=== PATIENT | female | born 1960 | race Asian ===

== ENCOUNTER → 2022-06-14 10:04 | Outpatient (CLI) | payer OTHER, SELFPAY ==
--- NOTE | 2022-06-14 | DI.MG.S_ITS ---
BILATERAL DIGITAL DIAGNOSTIC MAMMOGRAM 3D/2D: 06/14/2022 CLINICAL: Right breast mass. Comparison is made to exams dated: 09/12/2018 mammogram, 08/28/2019 mammogram, 07/27/2020 mammogram, and 07/28/2021 mammogram - outside facility. The tissue of both breasts is heterogeneously dense. This may lower the sensitivity of mammography. There is a biopsy site marker on the left breast. There is a 1.3 cm oval low density mass with a circumscribed margin in the right breast at 9 o'clock posterior depth 9 cm from the nipple. This correlates as palpated. IMPRESSION: INCOMPLETE: NEEDS ADDITIONAL IMAGING EVALUATION The 1.3 cm oval low density mass in the right breast is indeterminate. An ultrasound is recommended. Based on Tyrer-Cuzick model (a risk assessment model), the patient's lifetime risk is 31.4% and her 10 year risk is 13.7%. If a patient has an elevated risk, a more comprehensive evaluation should be considered and/or a referral to a genetic counselor. The [place] [employer], [employer], and NCCN Guidelines advise the consideration of Breast MRI as an adjunct to screening mammography in patients whose Lifetime risk to develop breast cancer is 20% or higher. This exam was interpreted at Station ID: [id number]. NOTE: For mammograms, a report in lay terms will be sent to the patient. Approximately 15% of breast malignancies will not be visualized mammographically. In the management of a palpable breast mass, a negative mammogram must not discourage biopsy of a clinically suspicious lesion. Electronically Signed By: Jose Daniel Phillips M.D. lc/:06/19/2022 10:58:00 ACR BI-RADS Category 0: Incomplete [id number]
--- NOTE | 2022-06-14 | DI.US.S_ITS ---
ULTRASOUND OF RIGHT BREAST: 06/14/2022 CLINICAL: Palpable right breast lump. Comparison is made to exams dated: 06/14/2022 mammogram - [facility], 07/28/2021 ultrasound, 07/28/2021 mammogram, 07/27/2020 mammogram, 07/27/2020 ultrasound, and 08/28/2019 ultrasound - outside facility. Real-time and Doppler ultrasound of the right breast were performed. Valdivia scale images of the real-time examination were reviewed. There is a benign 1.4 cm x 1.3 cm x 0.9 cm cyst in the right breast at 10 o'clock posterior depth 9 cm from the nipple. This correlates as palpated and with mammography findings. IMPRESSION: BENIGN There is no sonographic evidence of malignancy. The 1.4 cm x 1.3 cm x 0.9 cm cyst in the right breast is benign. A 1 year screening mammogram is recommended. This exam was interpreted at Station ID: [id number]. Electronically Signed By: Jose Daniel Phillips M.D. /:06/14/2022 11:33:39 letter sent: Clinical Evaluation Ultrasound BI-RADS: 2 Benign
== END ==
PROVIDERS: PCP Family Medicine; Referring Provider Family Medicine; Visit Provider Family Medicine
DX: N60.01 Solitary cyst of right breast (principal); R92.8 Other abnormal and inconclusive findings on diagnostic imaging of breast
CPT/HCPCS: 76642; 77066; G0279

== ENCOUNTER → 2022-11-22 10:50 | Outpatient (CLI) | payer OTHER, SELFPAY ==
--- NOTE | 2022-11-22 | DI.RAD.S_ITS ---
PROCEDURE: XR DEXA AXIAL SKELETON INDICATIONS: Age-related osteoporosis COMPARISON: None. FINDINGS: This blank DEXA report has been sent in error by the PACS system. The correct and complete report will be forthcoming in 1-2 days. Thank you for your patience and understanding. Dictated by: Gerald Izaguirre M.D. on 11/22/2022 at 14:31 Approved by: Gerald Izaguirre M.D. on 11/22/2022 at 14:31
== END ==
PROVIDERS: PCP Family Medicine; Referring Provider Family Medicine; Visit Provider Family Medicine
DX: Z13.820 Encounter for screening for osteoporosis (principal); Z78.0 Asymptomatic menopausal state; M85.852 Other specified disorders of bone density and structure, left thigh
CPT/HCPCS: 77080

== ENCOUNTER → 2023-06-17 10:20 | Outpatient (CLI) | payer OTHER, SELFPAY ==
--- NOTE | 2023-06-17 | DI.MG.S_ITS ---
BILATERAL DIGITAL DIAGNOSTIC MAMMOGRAM 3D/2D: 06/17/2023 CLINICAL: Fibrocystic breast. Right breast mass.Family History of Breast cancer. Comparison is made to exams dated: 06/14/2022 mammogram - [facility], 07/28/2021 mammogram, 07/27/2020 mammogram, and 08/28/2019 mammogram - outside facility. Both breasts are heterogeneously dense, which may obscure small masses (category c / 51-75% glandular tissue). No significant masses, calcifications, or other findings are seen in either breast. IMPRESSION: INCOMPLETE: NEEDS ADDITIONAL IMAGING EVALUATION There is no mammographic abnormality seen in the right breast to correspond with the palpable abnormality, however, ultrasound is recommended. There is no mammographic abnormality seen in either breast to correspond with the diffuse lateral breast pain, however, ultrasound is recommended. Based on Tyrer-Cuzick model (a risk assessment model), the patient's lifetime risk is 30.8% and her 10 year risk is 13.9%. If a patient has an elevated risk, a more comprehensive evaluation should be considered and/or a referral to a genetic counselor. The [place] [employer], [employer], and NCCN Guidelines advise the consideration of Breast MRI as an adjunct to screening mammography in patients whose Lifetime risk to develop breast cancer is 20% or higher. This exam was interpreted at Station ID: [id number]. NOTE: For mammograms, a report in lay terms will be sent to the patient. Approximately 15% of breast malignancies will not be visualized mammographically. In the management of a palpable breast mass, a negative mammogram must not discourage biopsy of a clinically suspicious lesion. Electronically Signed By: Carri nunes/:06/17/2023 11:30:08 ACR BI-RADS Category 0: Incomplete 3340F
--- NOTE | 2023-06-17 10:22 | DI.US.S_ITS ---
ULTRASOUND OF RIGHT BREAST: 06/17/2023 CLINICAL: Palpable right breast lump and focal tenderness. Comparison is made to exams dated: 06/17/2023 mammogram, 06/14/2022 ultrasound, 06/14/2022 mammogram - [facility], 07/28/2021 ultrasound, 07/28/2021 mammogram, and 07/27/2020 mammogram - outside facility. Color flow and real-time ultrasound of the right breast were performed on the areas of interest. Valdivia scale images of the real-time examination were reviewed. There is an oval cyst in the right breast at 9 o'clock middle depth. This oval cyst is hypoechoic with a well-defined boundary, internal echoes, and posterior acoustic enhancement. This abnormality is decreased in size and represnts a previously identified simple cyst. Color flow imaging demonstrates that there is no vascularity present. IMPRESSION: BENIGN There is no sonographic evidence of malignancy. The oval cyst in the right breast represents an involuting simple cyst with trace internal debris and is benign. There is no mammographic or sonographic abnormality seen in the right breast to correspond with the pain in the upper outer quadrant, however, clinical followup is recommended. A 1 year screening mammogram is recommended. This exam was interpreted at Station ID: [id number]. Electronically Signed By: Carri nunes/:06/18/2023 15:45:15 Entry: - 06/18/2023 15:55:16 Ultrasound BI-RADS: 2 Benign
--- NOTE | 2023-06-17 10:22 | DI.US.S_ITS ---
LIMITED ULTRASOUND OF LEFT BREAST AND AXILLA: 06/17/2023 CLINICAL: Focal left breast pain. Comparison is made to exams dated: 06/17/2023 mammogram, 06/14/2022 mammogram - [facility], 07/28/2021 ultrasound, 07/28/2021 mammogram, 07/27/2020 mammogram, and 07/27/2020 ultrasound - outside facility. Color flow ultrasound of the left breast axilla was performed on the areas of interest. Valdivia scale images of the real-time examination were reviewed. IMPRESSION: NEGATIVE There is no sonographic evidence of malignancy. There is no mammographic or sonographic abnormality seen in the left breast to correspond with the pain, however, clinical followup is recommended. A 1 year screening mammogram is recommended. This exam was interpreted at Station ID: Unknown. Electronically Signed By: Carri nunes/fariba:06/18/2023 15:43:52 Entry: - 06/18/2023 15:43:52 letter sent: Clinical Evaluation Ultrasound BI-RADS: 1 Negative
== END ==
PROVIDERS: PCP Family Medicine; Referring Provider Family Medicine; Visit Provider Family Medicine
DX: R92.2 Inconclusive mammogram (principal); N60.01 Solitary cyst of right breast; N63.10 Unspecified lump in the right breast, unspecified quadrant; N60.19 Diffuse cystic mastopathy of unspecified breast; N64.4 Mastodynia; Z80.3 Family history of malignant neoplasm of breast
CPT/HCPCS: 76642; 77066; G0279

== ENCOUNTER → 2024-02-12 11:20 | Outpatient (CLI) | payer OTHER, SELFPAY ==
--- NOTE | 2024-02-12 11:21 | DI.RAD.S_ITS ---
PROCEDURE: XR DEXA AXIAL SKELETON INDICATIONS: Age-related osteoporosis COMPARISON: [facility], CR, XR DEXA AXIAL SKELETON, 11/22/2022, 11:08. FINDINGS: Lumbar Spine: Bone mineral density 0.911 g/cm2, T score -1.2, no significant interval change. Left Hip: Bone mineral density 0.837 g/cm2, T score -0.6, no significant wall change. Left Femoral Neck: Bone mineral density 0.624 g/cm2, T score -1.6, no significant interval change. Right Hip: Bone mineral density 0.873 g/cm2, T score -0.6, there is significant interval increase in bone mineral density. Right Femoral Neck: Bone mineral density 0.673 g/cm2, T score -1.6, there is significant interval increase in bone mineral density. Fracture Risk Calculation (when applicable): 10-year fracture risk of a major osteoporotic fracture 4.8% and of a hip fracture 0.7%. (T score greater or equal to -1.0 to: NORMAL) (T score from -1.1 to -2.4: OSTEOPENIA) (T score less than or equal to -2.5: OSTEOPOROSIS) IMPRESSION: Osteopenia. There is significant interval increase in bone mineral density at the right hip. Dictated by: Sukhi Faust M.D. on 02/13/2024 at 11:17 Approved by: Sukhi Faust M.D. on 02/13/2024 at 11:22
== END ==
LOC: RAD 11:20
PROVIDERS: PCP Family Medicine; Referring Provider Family Medicine; Visit Provider Family Medicine
DX: M81.0 Age-related osteoporosis without current pathological fracture (principal)
CPT/HCPCS: 77080

== ENCOUNTER → 2024-04-13 09:30 | Outpatient (CLI) | payer OTHER, SELFPAY ==
--- NOTE | 2024-04-13 09:32 | DI.MG.S_ITS ---
BILATERAL DIGITAL DIAGNOSTIC MAMMOGRAM 3D/2D: 04/13/2024 CLINICAL: Left breast lump. Comparison is made to exams dated: 06/17/2023 mammogram, 06/14/2022 mammogram - [facility], and 07/28/2021 mammogram - outside facility. Both breasts are heterogeneously dense, which may obscure small masses (category c / 51-75% glandular tissue). A BB marker was placed in the area of clinical concern in the left breast, and no mammographic abnormality is identified. No significant masses, calcifications, or other findings are seen in either breast. IMPRESSION: INCOMPLETE: NEEDS ADDITIONAL IMAGING EVALUATION No mammographic evidence of malignancy. Recommend further evaluation with targeted breast ultrasound, which will immediately follow this exam. Based on Tyrer-Cuzick model (a risk assessment model), the patient's lifetime risk is 30.8% and her 10 year risk is 13.9%. If a patient has an elevated risk, a more comprehensive evaluation should be considered and/or a referral to a genetic counselor. The [employer] [employer], [employer], and NCCN Guidelines advise the consideration of Breast MRI as an adjunct to screening mammography in patients whose Lifetime risk to develop breast cancer is 20% or higher. This exam was interpreted at Station ID: [id number]. NOTE: For mammograms, a report in lay terms will be sent to the patient. Approximately 15% of breast malignancies will not be visualized mammographically. In the management of a palpable breast mass, a negative mammogram must not discourage biopsy of a clinically suspicious lesion. Electronically Signed By: Nida Soto M.D., Ph.D. eb/:04/13/2024 10:27:45 ACR BI-RADS Category 0: Incomplete 3340F
--- NOTE | 2024-04-13 09:33 | DI.US.S_ITS ---
LIMITED ULTRASOUND OF LEFT BREAST: 04/13/2024 CLINICAL: Palpable left breast lump. Comparison is made to exams dated: 04/13/2024 mammogram, 06/17/2023 ultrasound, 06/17/2023 mammogram, 06/14/2022 mammogram - [facility], 07/28/2021 ultrasound, and 07/28/2021 mammogram - outside facility. Color flow and real-time ultrasound of the left breast 2 o'clock region were performed. Valdivia scale images of the real-time examination were reviewed. There is a 0.3 cm x 0.3 cm x 0.3 cm oval mass with a circumscribed margin in the left breast at 2 o'clock, 6 cm from the nipple. This oval mass is hypoechoic with posterior acoustic enhancement. This correlates as palpated. This finding is not definitely seen on mammogram. Color flow imaging demonstrates that there is no vascularity present. IMPRESSION: PROBABLY BENIGN Left breast 0.3 cm oval circumscribed mass at 2 o'clock position corresponding to area of clinical palpable concern. Finding is likely a complicated cyst and is probably benign. Recommend follow-up ultrasound in 6 months to demonstrate stability. Patient was instructed to return sooner if development of any significant growth or clinically suspicious findings in the interim. Findings and recommendations were conveyed to the patient during today's evaluation. This exam was interpreted at Station ID: [id number]. Electronically Signed By: Nida Soto M.D., Ph.D. eb/:04/13/2024 11:10:33 letter sent: Followup Recommended Ultrasound BI-RADS: 3 Probably benign
== END ==
PROVIDERS: PCP Family Medicine; Referring Provider Family Medicine; Visit Provider Family Medicine
DX: R92.2 Inconclusive mammogram (principal); N63.21 Unspecified lump in the left breast, upper outer quadrant; R92.333 Mammographic heterogeneous density, bilateral breasts
CPT/HCPCS: 76642; 77066; G0279

== ENCOUNTER → 2024-05-14 10:48 | Outpatient (CLI) | payer OTHER, SELFPAY ==
--- NOTE | 2024-05-14 | DI.MRI.S_ITS ---
BREAST MRI OF BOTH BREASTS: 05/14/2024 CLINICAL: Heterogeneous Bilateral Breast. Family history. Comparison is made to exams dated: 04/13/2024 ultrasound, 04/13/2024 mammogram, 06/17/2023 ultrasound, 06/17/2023 mammogram, and 06/17/2023 ultrasound - [facility]. PROCEDURE: MR BREAST BI WO/W CON INDICATIONS: Mammographic heterogeneous density, bilateral breasts TECHNIQUE: The patient was placed prone in a dedicated breast imaging coil. Precontrast axial STIR and 3D FLASH without fat saturation sequences were obtained. Both before and after bolus injection of contrast, sequential 1-minute axial 3D FLASH with fat saturation sequences for 3 time points, with subtraction images and maximum intensity projections (MIP's) generated. Delayed sagittal FLASH images with fat saturation were also obtained. Computer-aided detection, including computer algorithm analysis of MRI image data for lesion detection and characterization, pharmacokinetic analysis, with further physician review for interpretation, was performed. FINDINGS: Image quality: Diagnostic. There is moderate background parenchymal enhancement. The breasts are heterogeneously dense. Right breast: At the 12 o'clock position of the right breast anterior depth, there is a focal region of non mass enhancement measuring 6 x 7 millimeters (, ). This may represent a prominent region of background fibroglandular enhancement, and does not appear masslike on sagittal images. No washout kinetics noted. No other suspicious mass, non-mass enhancement, or focus. Left breast: No suspicious mass, non-mass enhancement, or focus. Biopsy clip is present. Miscellaneous: There is borderline cardiomegaly. No suspicious findings in the partially visualized anterior mediastinum or upper abdomen. In the right axilla, there is 1.4 x 1.6 centimeter T2 hyperintense lesion (). No washout kinetics. IMPRESSION: INCOMPLETE: NEEDS ADDITIONAL IMAGING EVALUATION Right axilla 1.6 x 1.4 centimeter T2 hyperintense lesion, indeterminate, possibly a complicated cyst. (). Please note 9 o'clock position cyst was noted on May 2023 ultrasound 7 centimeters from the nipple, that was classified as benign. This lesion on MRI however is larger and may not be the same position. Ultrasound is recommended. Right breast 12 o'clock position focal non-mass enhancement measuring 6 x 7 millimeters (, ). This is probably benign, likely focal fibroglandular enhancement. Six-month follow-up MRI recommended. No suspicious findings in the left breast. BIRADS 0 COMMENT: The imaging literature indicates that a negative contrast breast MRI examination has a high sensitivity and a moderate specificity for detecting and excluding invasive carcinomas to a detection threshold of 3-5 mm; nonetheless, appropriate clinical and mammographic follow-up are recommended. MRI is not sensitive for detecting DCIS (ductal carcinoma in situ) and may not detect large invasive neoplasms that show only minimal enhancement such as mucinous carcinoma. If there are suspicious calcifications or clinically worrisome palpable masses, then biopsy should still be considered. Invasive neoplasms can be hidden by co-existent and benign enhancement caused by mastitis, hormone therapy effects, radiation therapy, , and recent biopsy or surgery. False positive examinations can occur in a number of circumstances, including breasts that have recently been subject to invasive procedures and those that contain atypical ductal hyperplasia, hormonally stimulated glandular tissue, fat necrosis, or radial scars. This exam was interpreted at Station ID: [id number]. Electronically Signed By: Jose Daniel Phillips M.D. lc/:05/14/2024 13:21:50 letter sent: Additional Imaging Needed ACR BI-RADS Category 0: Incomplete 3340F
== END ==
PROVIDERS: PCP Family Medicine; Referring Provider Family Medicine; Visit Provider Family Medicine
DX: R92.8 Other abnormal and inconclusive findings on diagnostic imaging of breast (principal); N63.31 Unspecified lump in axillary tail of the right breast; N63.15 Unspecified lump in the right breast, overlapping quadrants; N60.01 Solitary cyst of right breast; R92.333 Mammographic heterogeneous density, bilateral breasts; Z80.3 Family history of malignant neoplasm of breast
CPT/HCPCS: 77049; A9579

== ENCOUNTER → 2024-07-07 10:49 | Outpatient (CLI) | payer OTHER, SELFPAY ==
--- NOTE | 2024-07-07 10:50 | DI.US.S_ITS ---
LIMITED ULTRASOUND OF RIGHT BREAST AND AXILLA: 07/07/2024 CLINICAL: Late 6 month follow-up of cyst, and follow-up of abnormal MRI. Comparison is made to exams dated: 05/14/2024 breast MRI, 06/17/2023 ultrasound, 04/13/2024 mammogram, and 06/17/2023 mammogram - [facility]. Color flow and real-time ultrasound of the right breast 9 o'clock, 12 o'clock, and axilla regions were performed. Valdivia scale images of the real-time examination were reviewed. There is a stable 0.7 cm round cyst with debris in the right breast at 9 o'clock posterior depth. This round cyst with debris is hypoechoic with posterior acoustic enhancement. This correlates with breast MRI findings. Color flow imaging demonstrates that there is no vascularity present. There also is a benign normal lymph node in the right axillary tail. This normal lymph node displays fatty hilum. This correlates with breast MRI findings. Color flow imaging demonstrates that there is no vascularity present. No sonographic finding to correspond to the 12:00 MRI focus of enhancement. IMPRESSION: PROBABLY BENIGN The 0.7 cm round cyst with debris in the right breast at 9 o'clock posterior depth is stable and benign. The normal lymph node in the right axillary tail is benign. There is no abnormality seen in the right breast to correspond with the breast MRI finding at 12 o'clock in the anterior depth. A follow-up breast MRI in 4 months is recommended. Future imaging is recommended as follows: 11/14/2024 breast MRI. A left breast US will be recommended at that time to follow a previously described left breast finding which was not seen on MRI. Findings and recommendations were conveyed to the patient at time of exam. . This exam was interpreted at Station ID: [id number]. Electronically Signed By: Agnes valdes/:07/07/2024 17:38:14 letter sent: Followup Recommended ACR BI-RADS Category 3: Probably Benign [id number]
== END ==
PROVIDERS: PCP Family Medicine; Referring Provider Family Medicine; Visit Provider Family Medicine
DX: N63.11 Unspecified lump in the right breast, upper outer quadrant (principal); N60.01 Solitary cyst of right breast
CPT/HCPCS: 76642

== ENCOUNTER → 2024-11-19 10:16 | Outpatient (CLI) | payer BC, SELFPAY ==
--- NOTE | 2024-11-19 10:19 | DI.US.S_ITS ---
LIMITED ULTRASOUND OF LEFT BREAST: 11/19/2024 CLINICAL: 6 month follow-up of cyst left breast. Comparison is made to exams dated: 05/14/2024 breast MRI, 04/13/2024 ultrasound, and 04/13/2024 mammogram - [facility]. Real-time ultrasound of the left breast 2 o'clock region was performed. The previously described 0.3 cm x 0.3 cm x 0.3 cm oval mass with a circumscribed margin in the left breast at 2 o'clock middle depth 6 cm from the nipple is no longer seen and is compatible with a benign process. It was not seen on the prior MRI. No other significant abnormalities were seen sonographically in the left breast. IMPRESSION: BENIGN There is no sonographic evidence of malignancy. Return to annual mammogram screening schedule is recommended. Patient is also due for follow up breast MRI later this month. Findings and recommendations were conveyed to the patient during today's evaluation. This exam was interpreted at Station ID: [id number]. Electronically Signed By: Jamal Carpio M.D. at/:11/19/2024 13:35:01 letter sent: Clinical Evaluation ACR BI-RADS Category 2: Benign
[2024-11-19 12:12] LABS: Add Manual Diff / Slide Review NO; Basophils Absolute Auto 100 /uL (0-100); Basophils Percent Auto 0.8 % (0-2); Eosinophils Absolute Auto 100 /uL (0-450); Eosinophils Percent Auto 0.9 % (2-4); Hemoglobin 14.5 g/dL (12.0-16.0); Lymphocytes Absolute Auto 2100 /uL (1100-4500); Lymphocytes Percent Auto 27.7 % (25-40); Mean Corpuscular HGB Conc 33.6 % (30-36); Mean Corpuscular Hemoglobin 31.5 PG (26-34); Mean Corpuscular Volume 93.6 fL (80-100); Monocytes Absolute Auto 400 /uL (0-900); Neutrophils Absolute Auto 5000 /uL (1500-7000); Neutrophils Percent Auto 65.6 % (50-75); Platelet Count 346 X10^3/uL (150-400); Red Blood Cell Count 4.59 X10^6/uL (4.0-5.2); Red Cell Distribution Width 13.2 % (11.6-14.8); White Blood Cell Count 7.6 X10^3/uL (4.5-11.0)
[2024-11-19 12:47] LABS: Iron 177 ug/dL (37-170)
[2024-11-19 13:21] LABS: Thyroid Stimulating Hormone 1.06 uIU/mL (0.47-4.68)
[2024-11-19 13:22] LABS: Ferritin 60 ng/mL (11-264)
== END ==
PROVIDERS: PCP Family Medicine; Referring Provider Family Medicine; Visit Provider Family Medicine
DX: R92.8 Other abnormal and inconclusive findings on diagnostic imaging of breast (principal); L65.9 Nonscarring hair loss, unspecified
CPT/HCPCS: 36415; 76642; 82728; 83540; 84443; 85025

== ENCOUNTER → 2025-03-01 11:21 | Outpatient (CLI) | payer BC, SELFPAY ==
--- NOTE | 2025-03-01 11:23 | DI.RAD.S_ITS ---
PROCEDURE: XR DEXA AXIAL SKELETON INDICATIONS: screening for osteoporosis COMPARISON: None. FINDINGS: Lumbar Spine: Bone mineral density is 0.925 g/cm2, T score -1.1. Prior DEXA was performed using dissimilar scan type or analysis method. Left Femoral Neck: Bone mineral density 0.607 g/cm2, T score -2.2. Left Hip: Bone mineral density 0.805 g/cm2, T score -1.1. Prior DEXA was performed using dissimilar scan type or analysis method. Fracture Risk Calculation (when applicable): 10-year fracture risk of a major osteoporotic fracture 5.1% and of a hip fracture 0.8%. (T score greater or equal to -1.0 to: NORMAL) (T score from -1.1 to -2.4: OSTEOPENIA) (T score less than or equal to -2.5: OSTEOPOROSIS) IMPRESSION: By WHO criteria, patient has osteopenia. Follow-up guidelines as follows: Osteoporosis: Consider a repeat DEXA and Vertebral Fracture Assessment (VFA) exam in 2 years or sooner if medically necessary, to reassess this patient's status. Osteopenia: Consider a repeat DEXA in 2-3 years to reassess this patient's status, or if there is a new clinical indication. Normal: Consider a repeat DEXA in 5 years or sooner, or if there is a new clinical indication. All treatment decisions require clinical judgment and consideration of individual patient factors, including patient preferences, comorbidities, previous drug use, risk factors not captured in the FRAX model (e.g., frailty, falls, vitamin D deficiency, increased bone turnover, interval significant decline in bone density ) and possible under- or over-estimation of fracture risk by FRAX. In addition, the NOF Guide recommends that FDA-approved medical therapies be considered in postmenopausal women and men age >= 50 years with a: * Hip or vertebral (clinical or morphometric) fracture * T-score of <=-2.5 at the spine or hip * Ten-year fracture probability by FRAX of >= 3% for hip fracture or >=20% for major osteoporotic fracture. Approved by: Arsalan Jimenez M.D. on 03/01/2025 at 22:50
== END ==
LOC: RAD 11:22
PROVIDERS: PCP Family Medicine; Referring Provider Family Medicine; Visit Provider Family Medicine
DX: M81.0 Age-related osteoporosis without current pathological fracture (principal)
CPT/HCPCS: 77080

== ENCOUNTER → 2025-05-12 13:19 | Outpatient (CLI) | payer BC, SELFPAY ==
--- NOTE | 2025-05-12 13:21 | DI.MG.S_ITS ---
US breast BI limited, MM diagnostic mammo BI: 05/12/2025 BI-RADS: 4 CLINICAL: 65-year old female for bilateral diagnostic mammogram and bilateral diagnostic breast ultrasound. Tyrer-Cuzick lifetime risk of 25.2%. Current reported family history of breast cancer: mother and maternal aunt. The patient reports a palpable abnormality (1 month) in the left breast. The patient had a prior left breast biopsy. PRIOR EXAMS 11/19/2024, 07/07/2024, 05/14/2024, 04/13/2024, 06/17/2023, 06/14/2022. MAMMOGRAPHY TECHNIQUE: 2D and 3D (tomosynthesis) digital mammographic views obtained, with additional images as needed for full coverage. Current study was also evaluated with a Computer Aided Detection (CAD) system. ULTRASOUND TECHNIQUE: Real-time yi scale and color doppler imaging of the area of clinical interest was performed with image documentation. TARGETED Bilateral Breast Ultrasound: Real-time ultrasound exam was performed focused to area of clinical and/or imaging concern. DENSITY D. The breasts are extremely dense, which lowers the sensitivity of mammography. MAMMOGRAPHY FINDINGS Right: No suspicious mass, asymmetry, microcalcification, or other abnormality seen. No significant change from comparison. Left (finding-1): Upper Outer Quadrant, Middle depth: A skin marker was placed in the area of concern, and no mammographic abnormalities are identified or to account for concern by the patient of a palpable lump. No suspicious mass, asymmetry, microcalcification, or other abnormality seen. Left: Biopsy marker present on the left. ULTRASOUND FINDINGS Right: Axilla, measuring 3 x 1.5 x 2.1 cm: There is a heterogeneous lymph node with eccentric cortical thickening measuring up to 6 mm. Right: Outer at 9:00, 7 cm from nipple, measuring 0.7 x 0.5 x 0.7 cm - previously measuring (07/07/2024) 0.7 x 0.6 x 0.7 cm: There is a complicated cyst that is unchanged in size and appearance. This finding is stable dating back to 06/17/2023. Right: Outer at 9:00, 4.0 cm from nipple, measuring 1 x 0.6 x 1.1 cm: There are clustered microcysts. This is an incidental finding. Left (finding-1): Outer at 3:00, 5 cm from nipple: There is no sonographic abnormality to account for concern by the patient of a palpable lump. There is an incidental anechoic cyst measuring 0.4 x 0.2 x 0.4 cm. This was previously seen on ultrasound 04/13/2024 (labeled as 2:00, 6 cm from the nipple). IMPRESSION: Right: Axilla, measuring 3 x 1.5 x 2.1 cm * Suspicious findings with likelihood of malignancy. Left * No evidence of malignancy. RECOMMENDATIONS Right: Axilla * Ultrasound-guided biopsy for further evaluation. Left * Clinical follow-up is recommended, and further management of palpable abnormalities or other focal signs or symptoms should be based on the results of clinical evaluation. If palpable abnormality or other concerning symptom persists or progresses, further clinical evaluation should be considered. Bilateral * Patient is also overdue for short interval breast MRI follow up per the report from 05/14/2024. COMMENTS: Findings and recommendations regarding the right axillary biopsy were conveyed to the patient during today's evaluation by Dr. Justice. OVERALL ASSESSMENT CATEGORY BI-RADS-4: Suspicious. ELECTRONICALLY SIGNED: Ama Baker M.D. on 05/12/2025 at 03:46:38 PM PT Interpreting Station ID: [id number]
== END ==
PROVIDERS: PCP Family Medicine; Referring Provider Family Medicine; Visit Provider Family Medicine
DX: R92.8 Other abnormal and inconclusive findings on diagnostic imaging of breast (principal); N63.21 Unspecified lump in the left breast, upper outer quadrant; N60.01 Solitary cyst of right breast; N60.02 Solitary cyst of left breast; R59.0 Localized enlarged lymph nodes; R92.343 Mammographic extreme density, bilateral breasts; Z80.3 Family history of malignant neoplasm of breast
CPT/HCPCS: 76642; 77066; G0279

== ENCOUNTER → 2025-08-17 08:14 | Outpatient (CLI) | payer BC, SELFPAY ==
[2025-08-17 09:33] LABS: Cholesterol 187 mg/dL (140-199); Glucose 96 mg/dL (70-99); HDL Cholesterol 96 mg/dL (40-60); Triglycerides 74 mg/dL (35-150)
== END ==
PROVIDERS: PCP Family Medicine; Referring Provider Family Medicine; Visit Provider Family Medicine
DX: Z13.220 Encounter for screening for lipoid disorders (principal); Z13.9 Encounter for screening, unspecified
CPT/HCPCS: 36415; 80061; 82947

== ENCOUNTER → 2025-08-25 07:55 | Outpatient (CLI) | payer BC, SELFPAY ==
--- NOTE | 2025-08-25 07:56 | DI.US.S_ITS ---
US breast needle loc RT: 08/25/2025.
== END ==
LOC: US 07:56
PROVIDERS: PCP Family Medicine; Visit Provider Family Medicine
DX: N63.31 Unspecified lump in axillary tail of the right breast (principal); Z80.3 Family history of malignant neoplasm of breast
CPT/HCPCS: 19285; C1819

== ENCOUNTER 2025-08-25 07:57 | Day surgery (SDC) | payer BC, SELFPAY ==
[2025-08-11 13:40] VITALS: BMI 19.2
[2025-08-25 08:25] VITALS: BP 139/73; PULSE 61; RESP 15; TEMP 36.7; O2SAT 100
[2025-08-25] MEDS: LACTATED RINGERS 1,000 ML 42 ML IV (10:25)
--- NOTE | 2025-08-25 15:15 | SUR.OPER ---
Supine on padded OR bed, head on pillow, arms secured on padded arm boards at <90 degrees abduction, legs uncrossed, safety belt at thigh, provider approved final positioning.
--- NOTE | 2025-08-25 15:29 | P.OP.PRE_ITS ---
Pre-operative Note
--- NOTE | 2025-08-25 15:29 | PM.PREOP ---
Pre-operative Note COVID-19 COVID-19 status: Not tested Interval Note History & Physical reviewed/Exam performed by Physician: Yes Changes to H&P: Yes H&P completed within 30 days and has changed as indicated here:: After discussion with Radiology the decision was made to proceed with wire-directed excisional biopsy of right axillary lymph node ASA Class (for procedural sedation): I
--- NOTE | 2025-08-25 16:49 | P.OP_ITS ---
Operative Date/Time/Diagnoses
--- NOTE | 2025-08-25 16:49 | PM.OP.1 ---
Operative Date/Time/Diagnoses Date of procedure: 08/25/25 Time of procedure: 16:49 Pre-op diagnosis: Enlarged right axillary lymph node Post-op diagnosis: same Procedure & Clinicians Procedure: Wire directed excisional biopsy of right axillary node/mass Same procedure(s) as scheduled: Yes Surgeon: Meek Ortiz Assisted?: Yes Sound Effects Person: Brian Mazariegos Anesthesia Type: General Operative Notes Findings: Soft, well-circumscribed 3 cm x 2.5 cm mass Applied: none Estimated Blood Loss (mL): 5 Procedure in detail: The patient is a 65-year-old woman who had a mass in her right axilla that has been biopsied with core needle biopsy but there was still concern from Radiology and a decision was made perform an excisional biopsy using wire localization. The patient had wire localization performed before surgery. The patient was brought to the operating room, placed on the table in the supine position with the right arm on an armboard and general anesthesia was induced. The wire was cut to about 5 cm from the skin. The right axilla was carefully prepped and draped in the usual fashion and a time-out was performed. A 5 cm incision was created at the hairline. Dissection was carried down to the wire and traced down deep into the axilla. There was a we 3 cm x 2.5 cm soft, well-circumscribed mass in the axilla. The mass was dissected off of a vein, probably the thoracodorsal vein and the nerve, possibly a branch of the long thoracic nerve. The mass seemed to be along the anterior aspect of the latissimus dorsi muscle. Several small structures were clipped and divided in the mass was excised EN bloc. A small portion was excised and sent for flow cytometry and the remainder was sent in formalin. Additional local was injected into the wound. The wound was irrigated with sterile saline. The incision was then closed in layers using multiple interrupted 3-0 Vicryl dermal sutures followed by a running 4-0 Monocryl subcuticular stitch. Steri-Strips and a dressing were applied. The patient was awakened and brought to recovery room. Right axillary node measuring 3 cm sent in formalin and for flow cytometry. Complications: none Post-operative Condition: stable Disposition: PACU
[2025-08-25 16:54] VITALS: BP 133/64; PULSE 89; RESP 15; TEMP 36.8; O2SAT 100
[2025-08-25 16:59] VITALS: BP 136/65; PULSE 77; RESP 17; O2SAT 97
[2025-08-25 17:02] VITALS: BP 139/72; PULSE 75; RESP 21; TEMP 36.8; O2SAT 100
== END 2025-08-25 17:25 | disposition home or self-care (01) ==
PROVIDERS: PCP Family Medicine; Referring Provider Surgery; Visit Provider Surgery
PROC: (CPT 38525; principal; 2025-08-25 12:45)
DX: D17.1 Benign lipomatous neoplasm of skin and subcutaneous tissue of trunk (principal)
CPT/HCPCS: 38525; 19285; C1819; J1100; J2405; J2704; J3010; J7120

== ENCOUNTER → 2025-09-27 15:08 | Outpatient (CLI) | payer BC, SELFPAY ==
[2025-09-27 15:52] LABS: Influenza A - CEPHEID Flu A NEGATIVE (NEGATIVE); Influenza B - CEPHEID Flu B NEGATIVE (NEGATIVE)
[2025-09-27 16:04] LABS: COVID-19 CEPHEID 4-PLEX PCR Negative (Negative)
== END ==
PROVIDERS: PCP Family Medicine; Visit Provider Physician Assistant
DX: R05.1 Acute cough (principal)
CPT/HCPCS: 87637

== ENCOUNTER → 2025-10-06 11:03 | Outpatient (CLI) | payer BC, SELFPAY ==
--- NOTE | 2025-10-06 11:05 | DI.RAD.S_ITS ---
PROCEDURE: XR CHEST 2V INDICATIONS: Cough TECHNIQUE: 2 views of the chest were acquired. COMPARISON: None. FINDINGS: Surgical changes and devices: None. Lungs and pleura: Lungs are clear. No pleural effusions or pneumothorax. Mediastinum: Mediastinal contours are normal. Heart size is normal. Bones and chest wall: No suspicious bony abnormalities. Soft tissues appear unremarkable. IMPRESSION: No acute pulmonary process. Dictated by: Smita Villa M.D. on 10/06/2025 at 11:37 Approved by: Smita Villa M.D. on 10/06/2025 at 11:37
== END ==
PROVIDERS: PCP Family Medicine; Referring Provider Family Medicine; Visit Provider Nurse Practitioner Family
DX: R05.9 Cough, unspecified (principal)
CPT/HCPCS: 71046